=== PATIENT | female | born 1940 | race Caucasian/White ===

== ENCOUNTER 2020-03-27 14:10 | Emergency (ER) | payer MEDICARE, OTHER ==
[~2020-03-27] VITALS: Ht 167.6 cm; Wt 99.8 kg
[2020-03-27 14:24] VITALS: BP 138/82
--- NOTE | 2020-03-27 14:27 | NUR ---
ED Nurse Note: pt's granddaughter Miranda [phone]
--- NOTE | 2020-03-27 14:31 | NUR ---
ED Nurse Note: Patient from home and walked in for monoclonal antibody infusion per order of Dr Deras. Patient tested covid positive today 03/27/20. Patient c/o fatigue and bodyaches. Pt is AAO x4, ambulatory with non labored breathing.
[2020-03-27] MEDS ORDERED: Regeneron EUA 2,400 MG in NS 255 ML IVPB SCH (14:45)
[2020-03-27] MEDS ORDERED: Regeneron EUA MISC ONE (14:45)
[2020-03-27] MEDS ORDERED: Acetaminophen 500mg (ES) tab ORAL ONE (14:45)
--- NOTE | 2020-03-27 17:00 | NUR ---
ED Nurse Note: eulalia ca. Will monitor patient for one hour before discharge.
--- NOTE | 2020-03-27 17:23 | Emergency Room Report ---
History of Present Illness General Chief Complaint: Flu Like Symptoms Source: Patient Present Illness HPI 79-year-old female referred for monoclonal antibody infusion. Tested positive today for Covid. Referred by PMD. States she has body aches and cough. Temp 100.4 in triage. Denies chest pain or shortness of breath. No other aggravating relieving factors. 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 COVID-19 Screening: Positive COVID-19 COVID-19 Testing Source: 03/26/20 Patient History Past Medical History: none Past Surgical History: none Pertinent Family History: none Social History: Denies: smoking, alcohol use, drug use Now: No Immunizations: UTD Reviewed Nursing Documentation: PMH: Agreed; PSxH: Agreed Review of Systems All Other Systems: negative except mentioned in HPI Physical Exam Vital Signs Date Time Temp Pulse Resp B/P (MAP) Pulse Ox O2 Delivery O2 Flow Rate FiO2 03/27/20 14:24 100.4 87 18 138/82 (100) 99 Room Air Sp02 EP Interpretation: reviewed, normal General Appearance: no apparent distress, alert, GCS 15, non-toxic Head: normocephalic, atraumatic Eyes: bilateral eye normal inspection, bilateral eye PERRL ENT: hearing grossly normal, normal pharynx, no angioedema, normal voice Neck: full range of motion, supple/symm/no masses Respiratory: chest non-tender, lungs clear, normal breath sounds, speaking full sentences Cardiovascular #1: regular rate, rhythm, no edema Cardiovascular #2: 2+ carotid (R), 2+ carotid (L), 2+ radial (R), 2+ radial (L), 2+ dorsalis pedis (R), 2+ dorsalis pedis (L) Gastrointestinal: normal bowel sounds, non tender, soft, non-distended, no guarding, no rebound Rectal: deferred Genitourinary: normal inspection, no CVA tenderness Musculoskeletal: back normal, normal range of motion, gait/station normal, non- tender Neurologic: alert, motor strength/tone normal, oriented x3, sensory intact, responsive, speech normal Psychiatric: judgement/insight normal, memory normal, mood/affect normal, no suicidal/homicidal ideation Reflexes: 3+ bicep (R), 3+ bicep (L), 3+ tricep (R), 3+ tricep (L), 3+ knee (R), 3+ knee (L) Lymphatic: no adenopathy Medical Decision Making Diagnostic Impression: Primary Impression: COVID-19 ER Course ER Course Regeneron - REGN-COV2 Infusion - FDA EUA. - Reviewed/ d/w pt. the REGN-COV2 Infusion Drug fact sheet for patients who are considering receiving IV infusion. Pt. understands and is aware that this medication has authorization from the FDA for Emergency Use only, and is still undergoing full testing and monitoring before it can be fully authorized by the FDA. Pt. also understands that this medication is intended to reduce or prevent need for severe hospitalization and invasive interventions that are known to arise in high risk patients who are infected with the nCoV-2019. Pt. understands this is not a cure/treatment for full remission of COVID-19. Pt. educated and understands that the safety and effectiveness of the REGN-COV2 Infusion is saucedo ited at this time. The pt. is educated on possible side effects as well as possibility of severe side effects/reactions that may arise. Pt. is educated and aware that any intermediate manager effects arising from this FDA- EUA COVID-19 treatment is not known at this time. After education and chance to ask any questions or receive additional clarification, this patient has decided to move forward and receive the REGN- COV2 Infusion for COVID-19 under FDA emergency use authorization here in the Emergency Dept. Infusion is administered via IV over the duration of 1 hour. The patient is monitored and observed for any reactions to infusion that require acute medical intervention. The patient did not have any significant reactions during the 1 hour observation period following infusion. Pt. was given their own copy of the REGN-COV2 Infusion fact sheet to take home. Last Vital Signs Date Time Temp Pulse Resp B/P (MAP) Pulse Ox O2 Delivery O2 Flow Rate FiO2 03/27/20 15:21 100.0 03/27/20 14:29 87 18 Room Air 03/27/20 14:24 138/82 99 Status: improved Disposition: HOME, SELF-CARE Condition: Stable Scripts D-Methorphan Hb/Prometh Hcl* (PROMETHAZINE-DM SYRUP*) 118 Ml Syrup 5 ML ORAL Q6H PRN for For Cough, #118 ML 0 Refills Prov: Suleman Bunch MD 03/27/20 Acetaminophen* (TYLENOL EXTRA STRENGTH*) 500 Mg Tablet 500 MG ORAL Q8H PRN for Prn Headache/Temp > 101, #30 TAB 0 Refills Prov: Suleman Bunch MD 03/27/20 Referrals: NON PHYSICIAN (PCP) Suleman Bunch MD Mar 27, 2020 17:23
[2020-03-27] MEDS ORDERED: PROMETHAZINE-D118 ML ORAL (17:26)
[2020-03-27] MEDS ORDERED: TYLENOL EXTRA500 MG ORAL (17:26)
[2020-03-27 18:05] VITALS: BP 136/86
--- NOTE | 2020-03-27 18:05 | NUR ---
ER DISCHARGE NOTE: Patient is cleared to be discharged per ERMD, pt is aox4, on room air, with stable vital signs. pt was given dc and prescription instructions, pt was able to verbalize understanding, pt id band and iv site removed without complications. pt is able to ambulate with steady gait. pt took all belongings.
== END 2020-03-27 18:05 | disposition home or self-care (01) ==
LOC: EMR 14:50
DX: U07.1 COVID-19 (principal); R05 Cough; R52 Pain, unspecified; Z23 Encounter for immunization
CPT/HCPCS: 96361; 96365; 99284; J7030; J7050; Q0243